=== PATIENT | female | born 1990 | race Caucasian/White ===

== ENCOUNTER 2021-09-21 16:50 | Observation (INO) | payer BC ==
[~2021-09-21] VITALS: Ht 170.2 cm; Wt 70.3 kg
== END 2021-09-21 18:20 | disposition home or self-care (01) ==
LOC: SPU 16:50
PROVIDERS: ADMIT Obstetrics & Gynecology; ATTEND Obstetrics & Gynecology
DX: O36.8120 Decreased fetal movements, second trimester, not applicable or unspecified (principal); Z3A.23 23 weeks gestation of pregnancy
CPT/HCPCS: G0378; G0379; 81002